=== PATIENT | female | born 1955 | race African-American/Black ===

== ENCOUNTER 2017-12-15 15:31 | Outpatient (CLI) | payer MEDICARE | END 2017-12-15 15:32 | disposition home or self-care (01) | LOC: BICMAMMO 15:31 | PROVIDERS: ATTEND Family Medicine | DX: Z12.31 Encounter for screening mammogram for malignant neoplasm of breast (principal) | CPT/HCPCS: 77063; 77067 ==

== ENCOUNTER 2018-01-08 07:02 | Day surgery (SDC) | payer MEDICARE ==
[2018-01-07 12:09] VITALS: BMI 46.8
[2018-01-08] MEDS ORDERED: Glycopyrrolate 0.2 MG/ML 5 ML SYRINGE ONE (09:42)
[2018-01-08] MEDS ORDERED: Lidocaine Viscous Sol 2% 15 ml UD Cup ONE (09:42)
[2018-01-08] MEDS ORDERED: PROPOFOL 200 MG/20 ML VIAL ONE (12:33)
[2018-01-08] MEDS ORDERED: Lidocaine 1% PF 5 ML VIAL ONE (12:33)
--- NOTE | 2018-01-08 13:39 | OP ---
DATE OF PROCEDURE: 01/08/2018 SURGEON: Jose Montero M.D. FURNACE CHARGER SURGEON: None. PROCEDURE: 1. Esophagogastroduodenoscopy, diagnostic. 2. Colonoscopy, diagnostic. INDICATION: 1. Chronic heartburn, screening for Rodriguez's esophagus. 2. Lower abdominal pain. 3. Chronic constipation. MEDICATIONS: See anesthesia record. FINDINGS: After discussion of the risks, benefits and alternatives of the procedure, informed consen t was obtained and witnessed. Pre-endoscopic cardiopulmonary examination was satisfactory. Timeout was performed before sedation was achieved. Sedation was achieved with anesthesia assistance in the endoscopy unit. A Pentax adult upper endoscope was placed into the oropharynx and passed through the cricopharyngeus under direct visualization. The esophageal mucosa appeared normal throughout. The Z-line was variable, but in normal position at 35 cm from the incisors at the top of the gastric fold s. There was no evidence of any Rodriguez's esophagus or active esophagitis. The endoscope was advanc ed through the GE junction and into the stomach. Forward and retroflexed views of the entire gastric mucosa were obtained. There were a couple of small pyloric gland polyps. There was some mild diffu se erythema in the gastric antrum. No erosions or ulcers. The endoscope was advanced through the py lorus and into the first and second portions of the duodenum which appeared normal. The upper endosc ope was then completely withdrawn and the patient was repositioned. Digital rectal exam was performed which was unremarkable. A Pentax adult colonoscope was inserted in to the anus and passed forward to the cecum in the usual fashion. The cecal base was identified by t he appendiceal orifice as well as the ileocecal valve. The terminal ileum was intubated and the ilea l mucosa appeared normal. The colonoscope was then slowly withdrawn in a gradual and circumferential manner with careful examination of the entire colonic mucosa. The quality of the prep was good. Th e colonic mucosa appeared normal throughout. Retroflexion in the rectum demonstrated some internal h emorrhoids. The colonoscope was completely withdrawn and the patient allowed to recover. The patien t tolerated the procedure well. There were no immediate post-procedure complications. IMPRESSION: 1. Mild erythema in the gastric antrum. 2. Otherwise, normal esophagogastroduodenoscopy, with no evidence of Rodriguez's esophagus. 3. Internal hemorrhoids. 4. Otherwise, normal colonoscopy. RECOMMENDATIONS: 1. We will try increasing her omeprazole to 40 mg daily. 2. Follow up in clinic in about 1 month. 3. Recall for screening colonoscopy in 10 years.
== END 2018-01-08 11:25 | disposition home or self-care (01) ==
LOC: SDC 07:02
PROVIDERS: ATTEND Internal Medicine
PROC: 0DJ08ZZ Inspection of Upper Intestinal Tract, Via Natural or Artificial Opening Endoscopic (ICD-10-PCS; principal; 2018-01-08)
PROC: 0DJD8ZZ Inspection of Lower Intestinal Tract, Via Natural or Artificial Opening Endoscopic (ICD-10-PCS; 2018-01-08)
DX: K31.7 Polyp of stomach and duodenum (principal); K64.8 Other hemorrhoids; K59.09 Other constipation; R12 Heartburn; R10.30 Lower abdominal pain, unspecified; M19.90 Unspecified osteoarthritis, unspecified site; E11.9 Type 2 diabetes mellitus without complications; K21.9 Gastro-esophageal reflux disease without esophagitis; I10 Essential (primary) hypertension; E78.00 Pure hypercholesterolemia, unspecified; E66.9 Obesity, unspecified; Z68.42 Body mass index [BMI] 45.0-49.9, adult; Z79.82 Long term (current) use of aspirin; Z79.84 Long term (current) use of oral hypoglycemic drugs; Z79.899 Other long term (current) drug therapy
CPT/HCPCS: J2001; J2704

== ENCOUNTER 2018-11-01 20:30 | Outpatient (CLI) | payer MEDICARE | END 2018-11-01 20:31 | disposition home or self-care (01) | LOC: SLEEPLAB 20:30 | PROVIDERS: ATTEND Student in an Organized Health Care Education/Training Program | DX: G47.33 Obstructive sleep apnea (adult) (pediatric) (principal); R53.83 Other fatigue; R06.83 Snoring; I10 Essential (primary) hypertension; E11.9 Type 2 diabetes mellitus without complications; E66.9 Obesity, unspecified; Z68.42 Body mass index [BMI] 45.0-49.9, adult | CPT/HCPCS: 95811 ==

== ENCOUNTER 2019-05-13 15:09 | Outpatient (CLI) | payer MEDICARE ==
--- NOTE | 2019-05-13 16:25 | MMO ---
Bilateral MAMMO Bilat Screen [facility]. CLINICAL HISTORY: Patient is 63 years old and is seen for screening. The patient has no family history of breast cancer. The patient has no personal history of cancer. VIEWS: The views performed were: bilateral craniocaudal with tomosynthesis and bilateral mediolateral oblique with tomosynthesis. FILMS COMPARED: The present examination has been compared to prior imaging studies performed at [facility] on 05/04/2013, 06/13/2014, 07/23/2015 and 12/15/2017. This study has been interpreted with the assistance of computer-aided detection. MAMMOGRAM FINDINGS: The breasts are almost entirely fat. There are no suspicious masses, suspicious calcifications, or new areas of architectural distortion. IMPRESSION: THERE IS NO MAMMOGRAPHIC EVIDENCE OF MALIGNANCY. A ROUTINE FOLLOW-UP MAMMOGRAM IN 1 YEAR IS RECOMMENDED. THE RESULTS OF THIS EXAM WERE SENT TO THE PATIENT. ACR BI-RADS Category 1 - Negative MAMMOGRAPHY NOTE: 1. A negative mammogram report should not delay a biopsy if a dominant of clinically suspicious mass is present. 2. Approximately 10% to 15% of breast cancers are not detected by mammography. 3. Adenosis and dense breasts may obscure an underlying neoplasm. Reported by: HOLLAND DE OLIVEIRA MD Electonically Signed: [id number]
== END 2019-05-13 15:10 | disposition home or self-care (01) ==
LOC: BICMAMMO 15:09
PROVIDERS: ATTEND Family Medicine
DX: Z12.31 Encounter for screening mammogram for malignant neoplasm of breast (principal)
CPT/HCPCS: 77063; 77067

== ENCOUNTER 2020-07-04 11:18 | Outpatient (CLI) | payer MEDICARE ==
--- NOTE | 2020-07-04 13:01 | MMO ---
Bilateral MAMMO Bilat Screen [facility]. CLINICAL HISTORY: Patient is 64 years old and is seen for screening. The patient has no family history of breast cancer. The patient has no personal history of cancer. VIEWS: The views performed were: bilateral craniocaudal with tomosynthesis and bilateral mediolateral oblique with tomosynthesis. FILMS COMPARED: The present examination has been compared to prior imaging studies performed at [facility] on 06/13/2014, 07/23/2015, 12/15/2017 and 05/13/2019. This study has been interpreted with the assistance of computer-aided detection. MAMMOGRAM FINDINGS: The breasts are almost entirely fat. There are stable benign appearing calcifications seen in both breasts. There are no suspicious masses, suspicious calcifications, or new areas of architectural distortion. IMPRESSION: THERE IS NO MAMMOGRAPHIC EVIDENCE OF MALIGNANCY. A ROUTINE FOLLOW-UP MAMMOGRAM IN 1 YEAR IS RECOMMENDED. THE RESULTS OF THIS EXAM WERE SENT TO THE PATIENT. ACR BI-RADS Category 2 - Benign finding MAMMOGRAPHY NOTE: 1. A negative mammogram report should not delay a biopsy if a dominant of clinically suspicious mass is present. 2. Approximately 10% to 15% of breast cancers are not detected by mammography. 3. Adenosis and dense breasts may obscure an underlying neoplasm. Reported by: HARSHAD PURVIS MD Electonically Signed: [id number]
== END 2020-07-04 11:19 | disposition home or self-care (01) ==
LOC: BICMAMMO 11:18
PROVIDERS: ATTEND Family Medicine
DX: Z12.31 Encounter for screening mammogram for malignant neoplasm of breast (principal)
CPT/HCPCS: 77063; 77067

== ENCOUNTER 2021-09-03 08:48 | Outpatient (CLI) | payer MEDICARE | END 2021-09-03 08:49 | disposition home or self-care (01) | LOC: BICMAMMO 08:48 | PROVIDERS: ATTEND Family Medicine | DX: Z12.31 Encounter for screening mammogram for malignant neoplasm of breast (principal) | CPT/HCPCS: 77063; 77067 ==

== ENCOUNTER 2023-07-09 09:21 | Outpatient (CLI) | payer MEDICARE | END 2023-07-09 09:22 | disposition home or self-care (01) | LOC: BICMAMMO 09:21 | PROVIDERS: ATTEND Family Medicine | DX: Z12.31 Encounter for screening mammogram for malignant neoplasm of breast (principal); Z13.820 Encounter for screening for osteoporosis; Z78.0 Asymptomatic menopausal state; M85.851 Other specified disorders of bone density and structure, right thigh; M85.852 Other specified disorders of bone density and structure, left thigh | CPT/HCPCS: 77063; 77067; 77080 ==